=== PATIENT | male | born 1940 | race Hispanic/Latino ===

== ENCOUNTER 2020-05-09 05:26 | Emergency (ER) | payer OTHER ==
[2020-05-09 06:03] LABS: BASOPHILS % (AUTO) 0.8 % (0.0-5.0); EOSINOPHILS % (AUTO) 1.3 % (0.0-8.0); HEMATOCRIT 44.3 % (42-54); LYMPHOCYTES % (AUTO) 32.5 % (21.0-51.0); MEAN CORPUSCULAR HEMOGLOBIN 32.1 pg (27.0-33.0); MEAN CORPUSCULAR HGB CONC 33.9 g/dL (32.0-36.0); MEAN CORPUSCULAR VOLUME 94.9 fL (79-99); MONOCYTES % (AUTO) 7.5 % (3.0-13.0); NEUTROPHILS % (AUTO) 57.4 % (40.0-77.0); PLATELET COUNT (AUTO) 202 K/uL (130-400); RED BLOOD CELL COUNT(AUTO) 4.67 MIL/uL (4.50-6.20); RED CELL DISTRIBUTION WIDTH 13.8 % (11.0-15.5); WHITE BLOOD COUNT (AUTO) 12.4 K/uL (4.8-10.8)
[2020-05-09 06:17] LABS: ALBUMIN 3.8 g/dL (3.5-5.0); BILIRUBIN,TOTAL 0.9 mg/dL (0.2-1.0); CREATININE 0.9 mg/dL (0.5-1.5); POTASSIUM 3.8 mmol/L (3.5-5.1); TOTAL PROTEIN, SERUM 8.4 g/dL (6.0-8.3)
[2020-05-09 06:23] LABS: INR 1.05 (0.85-1.15); PARTIAL THROMBOPLASTIN TIME 28.2 SEC (26.3-35.5); PROTHROMBIN TIME 11.3 SEC (9.6-11.6)
[2020-05-09 06:27] LABS: B-TYPE NATRIURETIC PEPTIDE 567 pg/mL (0-100)
[2020-05-10] MEDS ORDERED: ASPI-1197 PO (18:52)
== END 2020-05-09 06:29 | disposition left against medical advice (07) ==
LOC: EDH 05:26
DX: I48.91 Unspecified atrial fibrillation (principal); R06.02 Shortness of breath; I10 Essential (primary) hypertension; Z79.899 Other long term (current) drug therapy
CPT/HCPCS: 36415; 71045; 80053; 83880; 84484; 85025; 85610; 85730; 93005

== ENCOUNTER 2020-05-10 00:17 | Inpatient (IN) | payer OTHER ==
[~2020-05-10] VITALS: Ht 170.2 cm; Wt 72.9 kg
[2020-05-10] MEDS ORDERED: SODIUM CHLORIDE 0.9% 500ML 500 ML IV ONE (00:42)
[2020-05-10 01:10] LABS: BASOPHILS % (AUTO) 1.1 % (0.0-5.0); EOSINOPHILS % (AUTO) 1.6 % (0.0-8.0); HEMATOCRIT 45.3 % (42-54); LYMPHOCYTES % (AUTO) 34.2 % (21.0-51.0); MEAN CORPUSCULAR HEMOGLOBIN 32.6 pg (27.0-33.0); MEAN CORPUSCULAR VOLUME 95.8 fL (79-99); MONOCYTES % (AUTO) 7.9 % (3.0-13.0); NEUTROPHILS % (AUTO) 54.8 % (40.0-77.0); PLATELET COUNT (AUTO) 195 K/uL (130-400); RED BLOOD CELL COUNT(AUTO) 4.73 MIL/uL (4.50-6.20); RED CELL DISTRIBUTION WIDTH 13.8 % (11.0-15.5); WHITE BLOOD COUNT (AUTO) 11.3 K/uL (4.8-10.8)
[2020-05-10 01:22] LABS: CREATININE 0.9 mg/dL (0.5-1.5); POTASSIUM 3.7 mmol/L (3.5-5.1)
[2020-05-10] MEDS ORDERED: FUROSEMIDE 10 MG/ML 2ML VIAL ONE ×2 (01:22→08:43)
[2020-05-10] MEDS ORDERED: ASPIRIN 325 MG TABLET ONE (01:22)
[2020-05-10 01:27] LABS: ALBUMIN 3.7 g/dL (3.5-5.0); TOTAL PROTEIN, SERUM 8.5 g/dL (6.0-8.3)
[2020-05-10 01:28] LABS: ABG BASE EXCESS -3.1 mmol/L (-2.0-3.0); ABG HCO3 20.7 mmol/L (21.0-28.0); ABG OXYGEN SATURATION 96.6 % (95.0-99.0); ABG PCO2 34 mmHg (35-48)
[2020-05-10 01:35] LABS: INR 1.09 (0.85-1.15); PARTIAL THROMBOPLASTIN TIME 28.3 SEC (26.3-35.5); PROTHROMBIN TIME 11.7 SEC (9.6-11.6)
[2020-05-10 01:49] LABS: B-TYPE NATRIURETIC PEPTIDE 600 pg/mL (0-100)
[2020-05-10] MEDS ORDERED: HYDRALAZINE HCL 20 MG/ML VIAL IV PRN ×2 (02:45→16:30)
[2020-05-10] MEDS ORDERED: IPRATROPIUM/ALBUTEROL SULFATE 3 ML SOLUTION IH PRN (02:45)
[2020-05-10] MEDS ORDERED: ONDANSETRON HCL 4 MG/2 ML VIAL IV PRN (02:45)
[2020-05-10] MEDS ORDERED: ACETAMINOPHEN 325 MG TAB PO PRN ×4 (02:45→16:30)
[2020-05-10] MEDS ORDERED: LACTULOSE 20 GM/30 ML UDCUP PO PRN (02:45)
[2020-05-10 03:19] LABS: HEMOGLOBIN A1C 5.7 % (4.0-6.0)
[2020-05-10 03:21] LABS: CHOLESTEROL 184 mg/dL (<200); HDL CHOLESTEROL 87 mg/dL (29-71); LDL DIRECT 131 mg/dL (0-99); TRIGLYCERIDES 74 mg/dL (30-200)
[2020-05-10] MEDS ORDERED: LORAZEPAM 2 MG/ML 1 ML VIAL ONE (05:05)
[2020-05-10] MEDS ORDERED: IOHEXOL-350 75 ML VIAL IV ONE (05:34)
[2020-05-10] MEDS ORDERED: ENOXAPARIN SODIUM 40 MG/0.4 ML SYRINGE SQ ONE (08:43)
[2020-05-10] MEDS ORDERED: METOPROLOL TARTRATE 25 MG TAB ONE (08:44)
[2020-05-10] MEDS ORDERED: FAMOTIDINE/PF 20 MG/2 ML VIAL IV ONE (08:44)
[2020-05-10] MEDS ORDERED: ASPIRIN 81MG TAB.CHEW ONE (08:45)
[2020-05-10] MEDS: ASPIRIN 81MG TAB.CHEW PO SCH (09:00)
[2020-05-10] MEDS: ENOXAPARIN SODIUM 40 MG/0.4 ML SYRINGE SQ SCH (09:00)
[2020-05-10] MEDS: FUROSEMIDE 10 MG/ML 2ML VIAL IV SCH ×2 (09:00→20:38)
[2020-05-10] MEDS: METOPROLOL TARTRATE 25 MG TAB PO SCH ×2 (09:00→20:38)
[2020-05-10] MEDS: FAMOTIDINE 20MG TAB 20 MG TAB PO SCH ×2 (09:00→20:37)
[2020-05-10] MEDS ORDERED: METOPROLOL TARTRATE 1 MG/ML 5ML VIAL IV ONE ×2 (10:09→16:35)
[2020-05-10 17:00] VITALS: BP 127/98
[2020-05-10] MEDS ORDERED: ASPI-1197 PO (18:52)
[2020-05-10 19:35] VITALS: BP 131/71
[2020-05-10] MEDS ORDERED: METOPROLOL TARTRATE 25 MG TAB PO SCH (21:00)
[2020-05-10] MEDS ORDERED: FAMOTIDINE 20MG TAB 20 MG TAB PO SCH (21:00)
--- NOTE | 2020-05-10 23:56 | NUR ---
418 Pt moved to 418,report given to Ami rodriguez
[2020-05-11] VITALS: BP 117/74
[2020-05-11] MEDS: METOPROLOL TARTRATE 1 MG/ML 5ML VIAL IV PRN (03:33)
[2020-05-11 04:00] VITALS: BP 122/69
[2020-05-11 05:27] LABS: BASOPHILS % (AUTO) 1.4 % (0.0-5.0); EOSINOPHILS % (AUTO) 2.3 % (0.0-8.0); HEMATOCRIT 43.6 % (42-54); LYMPHOCYTES % (AUTO) 34.7 % (21.0-51.0); MEAN CORPUSCULAR HEMOGLOBIN 31.7 pg (27.0-33.0); MEAN CORPUSCULAR HGB CONC 33.3 g/dL (32.0-36.0); MEAN CORPUSCULAR VOLUME 95.2 fL (79-99); MONOCYTES % (AUTO) 9.9 % (3.0-13.0); NEUTROPHILS % (AUTO) 51.3 % (40.0-77.0); PLATELET COUNT (AUTO) 197 K/uL (130-400); RED BLOOD CELL COUNT(AUTO) 4.58 MIL/uL (4.50-6.20); RED CELL DISTRIBUTION WIDTH 13.9 % (11.0-15.5); WHITE BLOOD COUNT (AUTO) 10.3 K/uL (4.8-10.8)
[2020-05-11 05:48] LABS: POTASSIUM 3.3 mmol/L (3.5-5.1)
[2020-05-11 07:39] VITALS: BP 121/89
--- NOTE | 2020-05-11 08:05 | NUR ---
[facility] called Called [facility] [phone] to paged operations vice president laboratory manager for today, Dr. Rincon, regarding consult. Left voicemail with my callback number and patient consult information as requested.
[2020-05-11] MEDS ORDERED: LIDOCAINE HCL-MPF 1% 2ML VIAL IV PRN (08:45)
[2020-05-11] MEDS ORDERED: POTASSIUM CHLORIDE 10% ELIXIR 20 MEQ/15 ML UDCUP PO PRN (08:45)
[2020-05-11] MEDS ORDERED: POTASSIUM CHLORIDE 20MEQ/100ML 100 ML IV PRN (08:45)
[2020-05-11] MEDS ORDERED: ENOXAPARIN SODIUM 40 MG/0.4 ML SYRINGE SQ SCH (09:00)
--- NOTE | 2020-05-11 09:05 | NUR ---
CATALINO CRISOSTOMO PA FOR [facility] HERE TO SEE PATIENT.
[2020-05-11] MEDS: FAMOTIDINE 20MG TAB 20 MG TAB PO SCH ×2 (09:26→21:22)
[2020-05-11] MEDS: METOPROLOL TARTRATE 25 MG TAB PO SCH ×3 (09:26→21:21)
[2020-05-11] MEDS: ASPIRIN 81MG TAB.CHEW PO SCH (09:27)
[2020-05-11] MEDS: FUROSEMIDE 10 MG/ML 2ML VIAL IV SCH ×2 (09:28→21:21)
[2020-05-11] MEDS: ENOXAPARIN SODIUM 40 MG/0.4 ML SYRINGE SQ SCH (09:35)
[2020-05-11] MEDS ORDERED: METOPROLOL TARTRATE 1 MG/ML 5ML VIAL IV SCH (10:30)
[2020-05-11 11:07] VITALS: BP_SYST 114; BP_SYST 147; BP_DIAS 71
--- NOTE | 2020-05-11 14:17 | NUR ---
NUTRITION EDUCATION Pt refusal for Heart Failure Nutrition education. Pt denies previous heart condition. Pt reports admitted for Tachycardia however denies need for Heart Failure nutrition education. Addendum: 05/11/20 at [address] Amended: Links added.
--- NOTE | 2020-05-11 14:44 | NUR ---
RD NOTIFICATION Pt admitted with possible CHF, Acute Respiratory Distress. Pt with no previous medical history per EMR. Pt with Heart Healthy Diet order. Good appetite, requesting double portions for breakfast, eats small meals throughout the remainder of the day. Pt denies need for nutrition education. Recommend continue Diet order Food preferences updated RD to follow up Addendum: 05/11/20 at [address] Amended: Links added.
[2020-05-11 16:00] VITALS: BP 137/76
[2020-05-11] MEDS: POTASSIUM CHLORIDE 20 MEQ ERTAB PO PRN ×2 (19:01→21:21)
[2020-05-11 20:41] VITALS: BP 122/73
[2020-05-11] MEDS ORDERED: METOPROLOL TARTRATE 25 MG TAB PO SCH (21:00)
[2020-05-12] VITALS (7 sets, daily range): BP systolic 110–132; BP diastolic 65–77
[2020-05-12 05:04] LABS: BASOPHILS % (AUTO) 1.4 % (0.0-5.0); EOSINOPHILS % (AUTO) 2.7 % (0.0-8.0); HEMATOCRIT 43.8 % (42-54); LYMPHOCYTES % (AUTO) 39.9 % (21.0-51.0); MEAN CORPUSCULAR HEMOGLOBIN 32.8 pg (27.0-33.0); MEAN CORPUSCULAR VOLUME 96.5 fL (79-99); MONOCYTES % (AUTO) 9.8 % (3.0-13.0); NEUTROPHILS % (AUTO) 45.8 % (40.0-77.0); PLATELET COUNT (AUTO) 195 K/uL (130-400); RED BLOOD CELL COUNT(AUTO) 4.54 MIL/uL (4.50-6.20); RED CELL DISTRIBUTION WIDTH 14.1 % (11.0-15.5); WHITE BLOOD COUNT (AUTO) 9.5 K/uL (4.8-10.8)
[2020-05-12 05:13] LABS: CREATININE 1.2 mg/dL (0.5-1.5); POTASSIUM 3.6 mmol/L (3.5-5.1)
[2020-05-12] MEDS: METOPROLOL TARTRATE 25 MG TAB PO SCH ×3 (06:03→21:05)
--- NOTE | 2020-05-12 08:15 | NUR ---
AAKASH Tejeda HERE ,AND UPDATE PT. HEART RHYTM OF ATRIAL FUTTER, HR OF 70'S NO CHANGES, AND CONT , WITH MEDICATION ORDER .
[2020-05-12] MEDS: FAMOTIDINE 20MG TAB 20 MG TAB PO SCH ×2 (09:14→21:00)
[2020-05-12] MEDS: APIXABAN 5 MG TABLET PO SCH ×2 (09:15→21:05)
--- NOTE | 2020-05-12 14:00 | NUR ---
UP SITTING IN THE CHAIR, REVIEW CARE, NO CHANGES, CALL LIGHT IN REACH. TELE MONITOR . HR OF 80'S ATRIAL FLUTTER , .
--- NOTE | 2020-05-12 15:47 | NUR ---
1150 Patient signed IM Letter, I faxed IM Letter to [phone] and placed in chart under consent tab.
[2020-05-12] MEDS ORDERED: FUROSEMIDE 10 MG/ML 4ML VIAL IV STA (16:08)
[2020-05-12] MEDS: POTASSIUM CHLORIDE 20 MEQ ERTAB PO PRN ×2 (16:34→21:07)
[2020-05-12] MEDS: POTASSIUM CHLORIDE 20 MEQ ERTAB PO SCH (16:41)
[2020-05-12] MEDS: METOPROLOL TARTRATE 1 MG/ML 5ML VIAL IV PRN (16:42)
--- NOTE | 2020-05-12 16:42 | NUR ---
LOPRESSOR 2.5 .G IV SLOWLY REPORTED FOR A HEART RATE UP TO THE 120'S A FLUTTER HEART RHYTUM . PER TELE MONITOR
--- NOTE | 2020-05-12 18:16 | NUR ---
CM NOTE/IA MEET WITH PATIENT IN ROOM. PER PATIENT, LIVES WITH FRIEND GUSTAVO ECHEVERRIA, INDEPENDENT WITH ADLS, NO USE OF PROVIDER OR HOME HEALTH WELL DME, AND FEELS SAFE TO RETURN HOME ONCE DISCHARGED FROM HOSPITAL. Addendum: 05/12/20 at 1817 by DAPHNEY MCHUGH RN CM Amended: Links added.
--- NOTE | 2020-05-12 21:05 | NUR ---
MEDS SHIFT ASSESSMENT DONE, PLEASE REFER TO CHART. DUE MEDS ADMINISTERED, TOLERATED WELL. KEPT RESTED AND COMFORTABLE IN BED. CALL LIGHT WITHIN REACH. WILL MONITOR PT. Addendum: 05/12/20 at 2323 by RADHA CHOI RN RN Amended: Links added.
--- NOTE | 2020-05-13 02:05 | NUR ---
ROUNDS PT RESTING WELL, FAIRLY ASLEEP WITH RESPIRATIONS EVEN AND UNLABORED. NO NOTED DISTRESS. KEPT UNDISTURBED FOR NOW. WILL MONITOR PT. CALL LIGHT WITHIN REACH.
[2020-05-13 03:57] VITALS: BP 124/76
[2020-05-13] MEDS: METOPROLOL TARTRATE 25 MG TAB PO SCH ×2 (05:05→14:14)
--- NOTE | 2020-05-13 05:05 | NUR ---
MEDS AWAKENED PT FOR DUE MEDS, TOLERATED WELL. NO CONCERNS VERBALIZED. 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 KEPT RESTED IN BED. FOR MORE CARE.
[2020-05-13 05:40] LABS: BASOPHILS % (AUTO) 1.1 % (0.0-5.0); EOSINOPHILS % (AUTO) 3.1 % (0.0-8.0); HEMATOCRIT 46.8 % (42-54); LYMPHOCYTES % (AUTO) 33.4 % (21.0-51.0); MEAN CORPUSCULAR HEMOGLOBIN 32.5 pg (27.0-33.0); MEAN CORPUSCULAR HGB CONC 33.8 g/dL (32.0-36.0); MEAN CORPUSCULAR VOLUME 96.3 fL (79-99); MONOCYTES % (AUTO) 9.4 % (3.0-13.0); NEUTROPHILS % (AUTO) 52.6 % (40.0-77.0); PLATELET COUNT (AUTO) 175 K/uL (130-400); RED BLOOD CELL COUNT(AUTO) 4.86 MIL/uL (4.50-6.20); RED CELL DISTRIBUTION WIDTH 13.9 % (11.0-15.5); WHITE BLOOD COUNT (AUTO) 9.8 K/uL (4.8-10.8)
[2020-05-13 05:50] LABS: CREATININE 0.9 mg/dL (0.5-1.5); POTASSIUM 3.9 mmol/L (3.5-5.1)
[2020-05-13 06:07] LABS: B-TYPE NATRIURETIC PEPTIDE 296 pg/mL (0-100)
[2020-05-13] MEDS: POTASSIUM CHLORIDE 20 MEQ ERTAB PO SCH (08:07)
[2020-05-13] MEDS: APIXABAN 5 MG TABLET PO SCH (08:50)
[2020-05-13] MEDS: FAMOTIDINE 20MG TAB 20 MG TAB PO SCH (08:50)
[2020-05-13 08:58] VITALS: BP 105/53
[2020-05-13] MEDS ORDERED: FUROSEMIDE 10 MG/ML 4ML VIAL IV SCH (09:45)
[2020-05-13 12:27] VITALS: BP 134/54
== END 2020-05-13 18:50 | disposition home or self-care (01) | DRG 292 ==
LOC: EDH 00:17 → OBSVTOIN 02:35 → EDHIP 02:35 → 4BH 17:05 → 4CH 23:56
PROVIDERS: ADMIT Hospitalist; ATTEND Hospitalist
DX: I50.43 Acute on chronic combined systolic (congestive) and diastolic (congestive) heart failure (principal); I48.92 Unspecified atrial flutter; D68.59 Other primary thrombophilia; F17.210 Nicotine dependence, cigarettes, uncomplicated; I35.0 Nonrheumatic aortic (valve) stenosis; Z79.01 Long term (current) use of anticoagulants
CPT/HCPCS: 36415; 36600; 71045; 71275; 80048; 80053; 80061; 82550; 82803; 83036; 83605; 83690; 83880; 84484; 85025; 85378; 85610; 85730; 93005; 93306; 93356; 94664; G0378; J1650; J1940; J2060; J3490; J7040; Q9967

== ENCOUNTER 2023-05-29 17:09 | Emergency (ER) | payer OTHER ==
[~2023-05-29] VITALS: Ht 170.2 cm; Wt 73.5 kg
[~2023-05-29 17:09] MED LIST: APIX5TAB PO; ASPI-1197 PO; ATOR40TA69 PO; BUME1TAB7 PO; LEVO-70 PO; METO-409 PO; MULT200T4 PO; POTA20PA32 PO; SACU1TAB4 PO
[2023-05-29 17:55] VITALS: BP 139/79
[2023-05-29 18:00] LABS: APPEARANCE,URINE CLEAR (CLEAR); BILIRUBIN,URINE NEGATIVE (NEGATIVE); COLOR,URINE YELLOW (YELLOW); GLUCOSE, URINE (UA) NEGATIVE (NEGATIVE); KETONES,URINE NEGATIVE (NEGATIVE); LEUKOCYTE ESTERASE ,URINE 25 Leu/uL (NEGATIVE); NITRATE,URINE NEGATIVE (NEGATIVE); OCCULT BLOOD,URINE LARGE (NEGATIVE); PROTEIN,URINE 20 mg/dL (NEGATIVE); UROBILINOGEN,URINE >=8.0 mg/dL (0.2-1.0)
[2023-05-29 18:10] LABS: BACTERIA,URINE RARE /HPF (None Seen); MUCUS,URINE RARE LPF (None Seen); RBC,URINE 51-100 /HPF (0-1); SQUAMOUS EPITHELIAL CELL,UR RARE /HPF (0-2); YEAST,URINE BUDDING FEW /HPF (None Seen)
[2023-05-29 18:36] LABS: BASOPHILS % (AUTO) 0.9 % (0.0-5.0); EOSINOPHILS % (AUTO) 2.5 % (0.0-8.0); HEMATOCRIT 43.1 % (42-54); LYMPHOCYTES % (AUTO) 35.2 % (21.0-51.0); MEAN CORPUSCULAR HEMOGLOBIN 32.9 pg (27.0-33.0); MEAN CORPUSCULAR HGB CONC 32.9 g/dL (32.0-36.0); MONOCYTES % (AUTO) 11.1 % (3.0-13.0); NEUTROPHILS % (AUTO) 49.5 % (40.0-77.0); PLATELET COUNT (AUTO) 187 K/uL (130-400); RED BLOOD CELL COUNT(AUTO) 4.31 MIL/uL (4.50-6.20); RED CELL DISTRIBUTION WIDTH 13.2 % (11.0-15.5); WHITE BLOOD COUNT (AUTO) 10.5 K/uL (4.8-10.8)
[2023-05-29 18:47] LABS: POTASSIUM 3.3 mmol/L (3.5-5.1)
[2023-05-29] MEDS ORDERED: BENZ-39 PO (18:51)
[2023-05-29] MEDS ORDERED: AMOX-427 PO (18:51)
[2023-05-29 18:52] LABS: ALBUMIN 3.5 g/dL (3.5-5.0); TOTAL PROTEIN, SERUM 8.2 g/dL (6.0-8.3)
[2023-05-29] MEDS ORDERED: POTASSIUM CHLORIDE 10% ELIXIR 20 MEQ/15 ML UDCUP PO SCH (19:17)
== END 2023-05-29 20:33 | disposition home or self-care (01) ==
LOC: EDH 17:09
DX: R31.9 Hematuria, unspecified (principal); J40 Bronchitis, not specified as acute or chronic; I48.91 Unspecified atrial fibrillation; I50.9 Heart failure, unspecified; F17.200 Nicotine dependence, unspecified, uncomplicated; Z79.01 Long term (current) use of anticoagulants; Z79.82 Long term (current) use of aspirin; Z79.899 Other long term (current) drug therapy
CPT/HCPCS: 36415; 71045; 80053; 81001; 85025